=== PATIENT | female | born 2005 | race Caucasian/White ===

== ENCOUNTER 2023-08-11 14:08 | Emergency (ER) | payer OTHER ==
[~2023-08-11] VITALS: Ht 152.4 cm; Wt 59.1 kg
[2023-08-11 14:17] VITALS: TEMP 98.4
[2023-08-11 15:41] VITALS: BP 117/79; PULSE 75
== END 2023-08-11 15:41 | disposition home or self-care (01) ==
LOC: COL.ER 14:08
DX: S09.90XA Unspecified injury of head, initial encounter (principal); R11.2 Nausea with vomiting, unspecified; W22.8XXA Striking against or struck by other objects, initial encounter